=== PATIENT | male | born 1995 | race Caucasian/White ===

== ENCOUNTER 2017-04-23 11:25 | Emergency (ER) | payer OTHER ==
[~2017-04-23] VITALS: Ht 180.3 cm; Wt 68.0 kg
[2017-04-23] MEDS ORDERED: [UNRECOGNIZED DRUG - OTHER] PO (11:56)
[2017-04-23] MEDS ORDERED: XANAX0.5 MG PO (11:56)
[2017-04-23] MEDS ORDERED: TRAZODONE HCL150 MG PO (11:56)
--- NOTE | 2017-04-23 12:26 | Diagnostic Imaging Report ---
EXAMINATION: Chest, CHEST 2 VIEWS INDICATION: Chest pain COMPARISON: None FINDINGS: LINES: None. Heart: Normal cardiac silhouette. Vascular: The pulmonary vasculature is within normal limits. Mediastinum: No mediastinal, hilar, or axillary mass or lymphadenopathy. Lungs: No parenchymal mass. No focal consolidation. Pleura: No pleural effusion. No pneumothorax. Bones: No acute osseous abnormality. Soft tissues: Normal. Impression: No acute radiographic abnormality. Signed by: Dr. Noe Arnett M.D. on 04/23/2017 12:22 PM
[2017-04-23 15:00] VITALS: BP 112/69
== END 2017-04-23 15:02 | disposition home or self-care (01) ==
LOC: ER 11:25
DX: R05 Cough (principal); J11.1 Influenza due to unidentified influenza virus with other respiratory manifestations; F43.10 Post-traumatic stress disorder, unspecified; Z87.01 Personal history of pneumonia (recurrent)
CPT/HCPCS: 71020; 87400; 99283